=== PATIENT | female | born 1980 | race African-American/Black ===

== ENCOUNTER 2017-03-05 09:18 | Emergency (ER) | payer BC, OTHER | END 2017-03-05 10:00 | disposition home or self-care (01) | LOC: SCSER 09:18 | DX: K21.9 Gastro-esophageal reflux disease without esophagitis (principal) | CPT/HCPCS: 99283 ==

== ENCOUNTER 2017-10-12 10:36 | Day surgery (SDC) | payer OTHER ==
[2017-10-12] MEDS ORDERED: Acetaminophen 325 MG TAB PO SCH (11:00)
[2017-10-12 18:53] VITALS: BP 107/60; TEMP 99
== END 2017-10-12 18:57 | disposition home or self-care (01) ==
LOC: ONC/OP 10:36 → ONC 10:39 → ONC/OP 18:57
PROVIDERS: ATTEND Internal Medicine
DX: D50.9 Iron deficiency anemia, unspecified (principal)
CPT/HCPCS: 36415; 36430; 86850; 86900; 86901; P9016

== ENCOUNTER 2017-10-13 07:17 | Outpatient (CLI) | payer OTHER | END 2017-10-13 07:18 | disposition home or self-care (01) | LOC: BICULT 07:17 | PROVIDERS: ATTEND Internal Medicine | DX: K21.9 Gastro-esophageal reflux disease without esophagitis (principal); R10.13 Epigastric pain; R10.33 Periumbilical pain; R11.2 Nausea with vomiting, unspecified; R19.7 Diarrhea, unspecified; K80.20 Calculus of gallbladder without cholecystitis without obstruction | CPT/HCPCS: 76700 ==

== ENCOUNTER 2017-12-02 14:56 | Outpatient (CLI) | payer OTHER ==
[2017-12-02 16:08] LABS: ALT (SGPT) 11 U/L (8-55); AST (SGOT) 12 U/L (5-34); Albumin 4.2 g/dL (3.5-5.0); Alkaline Phosphatase 82 U/L (40-150); Anion Gap 12 mmol/L (10-20); BUN (Urea Nitrogen) 10 mg/dL (7.0-18.7); Bilirubin, Direct 0.1 mg/dL (0.1-0.3); Bilirubin, Total 0.2 mg/dL (0.2-1.2); Calc. Creatinine Clearance 0 mL/min (70-130); Calcium 8.8 mg/dL (7.8-10.44); Carbon Dioxide 22 mmol/L (22-29); Chloride 107 mmol/L (98-107); Estimated GFR-MDRD Greater than 90; Glucose 142 mg/dL (70-105); Sodium 137 mmol/L (136-145)
[2017-12-02 16:32] LABS: #Basophils 0.1 thou/uL (0.0-0.2); #Eosinphils 0.2 thou/uL (0.0-0.7); #Lymphocytes 2.7 thou/uL (1.20-3.40); #Monocytes 0.4 thou/uL (0.11-0.59); #Neutrophils 3.6 thou/uL (1.40-6.50); %Basophils 0.8 % (0.0-1.0); %Eosinophils 2.7 % (0.0-10.0); %Lymphocytes 39.1 % (21.0-51.0); %Monocytes 5.6 % (0.0-10.0); %Neutrophils 51.9 % (42.0-75.0); Anisocytosis SLIGHT = 6-15 cells (100X) (0-5/hpf); Hemoglobin 7.8 g/dL (12.0-16.0); Hypochromia SLIGHT = 6-15 cells (100X) (0-5/hpf); MDiff Complete? YES; Mean Corpuscular Hemoglobin 19.6 pg (27.0-31.0); Mean Corpuscular Volume 63.1 fL (78.0-98.0); Mean Platelet Volume 10.9 fL (7.4-10.4); Microcytosis SLIGHT = 6-15 cells (100X) (0-5/hpf); Ovalocytes SLIGHT = 2-5 cells (100X) (0-1/hpf); PLT Morphology Comment Appears Increased; Platelet Count 409 thou/uL (130-400); Red Blood Cell (RBC) Count 3.96 mill/uL (4.20-5.40); White Blood Cell (WBC) Count 6.9 thou/uL (4.8-10.8)
== END 2017-12-02 14:57 | disposition home or self-care (01) ==
LOC: LABBT 14:56
PROVIDERS: ATTEND Surgery
DX: Z01.812 Encounter for preprocedural laboratory examination (principal); K80.20 Calculus of gallbladder without cholecystitis without obstruction
CPT/HCPCS: 80048; 80076; 85025; 85060

== ENCOUNTER → 2017-12-05 | Day surgery (SDC) | payer OTHER ==
[2017-12-02 15:14] VITALS: BMI 28.8
[~2017-12-05] MED LIST: Bupivacaine HCl 0.5%/Epinephrine 1:200,000/PF 30 ml Vial ONE; Bupivacaine/Epinephrine 0.25% 30 ML VIAL ONE; CEFAZOLIN/Water 2 GM/20 ML SYRINGE ONE; Dexamethasone 20 MG/5 ML VIAL ONE; Famotidine/PF 20 mg/2ml Vial ONE; Fentanyl 100 MCG/2 ML VIAL ONE; Glycopyrrolate 0.2 MG/ML 5 ML SYRINGE ONE; HYDROcodone/Acetaminophen 5/325 mg Tablet ONE; Ketorolac Tromethamine 30 MG/ML VIAL ONE; Lidocaine 1% PF 5 ML VIAL ONE; Lidocaine 2% 10 ML INJ ONE; Morphine 4 MG/ML VIAL ONE; Ondansetron HCl/PF 4 MG/2 ML Vial ONE; PROPOFOL 200 MG/20 ML VIAL ONE
--- NOTE | 2017-12-05 21:37 | OP ---
DATE OF PROCEDURE: 12/05/2017 PREOPERATIVE DIAGNOSIS: Acute cholecystitis. POSTOPERATIVE DIAGNOSIS: Acute cholecystitis. PROCEDURE: Laparoscopic cholecystectomy. SURGEON: Dr. Frank. ANESTHESIA: General. ESTIMATED BLOOD LOSS: Minimal. COMPLICATIONS: None. SPECIMEN: Gallbladder. FINDINGS: Chronic cholecystitis. PROCEDURE IN DETAIL: The patient was taken to the Operating Room and laid supine on the Operating Nancy m table. After general anesthetic was obtained, the abdomen was prepped and draped in a sterile fashi on. A curved incision was made below the umbilicus. Cautery was used to dissect down to the umbilical fascia. Umbilical fascia was incised and held up using a Josse. The abdominal cavity was entered us ing a Debbie clamp. Holding stitch of Vicryl was placed on each side of the fascia. Ovalles trocar was placed. High-flow pneumoperitoneum was obtained. An upper midline 5-mm port and two right upper quadr ant 5-mm ports were placed under direct camera visualization. The gallbladder was retracted from the gallbladder fossa. The peritoneum of the gallbladder was opened anteriorly and posteriorly. The criti latonya view triangle was seen showing only the cystic duct and cystic artery branching from medial to la teral. There were no other branching structures. Two clips were placed proximally on the cystic duct and one laterally. It was cut using laparoscopic scissors. The cystic artery was taken in the same wa y. Electrocautery was then used to dissect the gallbladder out of the gallbladder fossa. The gallblad allie was placed in an Endo catch bag and brought out through the Ovalles. There was no bleeding or bile in the liver bed. The cystic duct stump and cystic artery stump were intact without evidence of extr avasation or bleeding. All port sites were infiltrated using local anesthesia. All ports were removed under camera visualization. Pneumoperitoneum was let down. The Vicryl was used to close the fascial defect below the umbilicus. All incisions were irrigated and closed using 4-0 Monocryl and DermaBond. The patient was en route to Recovery in stable condition. All instrument counts, needle counts and l ap counts were correct.
== END ==
LOC: SDC 11:16
PROVIDERS: ATTEND Surgery
PROC: 0FT44ZZ Resection of Gallbladder, Percutaneous Endoscopic Approach (ICD-10-PCS; principal; 2017-12-05)
DX: K80.12 Calculus of gallbladder with acute and chronic cholecystitis without obstruction (principal); Z79.899 Other long term (current) drug therapy
CPT/HCPCS: 88304; 96374; J0131; J0670; J2270; J3010; S0028

== ENCOUNTER 2018-02-23 08:37 | Day surgery (SDC) | payer OTHER ==
[2018-02-22 13:35] VITALS: BMI 34.7
[2018-02-23] MEDS ORDERED: Fentanyl 100 MCG/2 ML VIAL ONE ×2 (11:30→12:47)
[2018-02-23] MEDS ORDERED: Famotidine/PF 20 mg/2ml Vial ONE (11:31)
[2018-02-23] MEDS ORDERED: Ferric Subsulfate 8 ML BOT ONE (12:09)
[2018-02-23] MEDS ORDERED: Naloxone HCl 0.4 mg/ml Vial ONE (12:30)
--- NOTE | 2018-02-23 12:41 | OP ---
PREOPERATIVE DIAGNOSES: 1. Chronic tonsillitis. 2. Obstructive tonsillar hypertrophy. POSTOPERATIVE DIAGNOSES: 1. Chronic tonsillitis. 2. Obstructive tonsillar hypertrophy. PROCEDURE PERFORMED: Tonsillectomy over 12 years of age. PROCEDURE IN DETAIL: After consent was obtained, the patient was identified, brought to the operatin g room, and placed on the operating table in the supine position. General endotracheal anesthesia an d intravenous access was obtained and we proceeded with positioning the patient for oropharyngeal leona linda. Oropharyngeal exposure was obtained with a Shyanne-Tejas mouth gag after a head drape was placed and secured with a towel clip. The Shyanne-Tejas mouth gag was then suspended from the Mitchell tray and palatal elevation was achieved with a red rubber catheter. The right tonsil was addressed first. We used a curved Allis to grasp the tonsil and retract it medially as an anterior pillar incision was m artem with a #12 blade. The retrotonsillar fascial plane was then established and blunt dissection was performed with the suction cautery. Blood vessels were anticipated, identified, and cauterized as t hey were encountered. Ultimately, dissection was carried to the posterior tonsillar pillar mucosa wh ich was incised hemostatically, as well as the base of tongue connection. The tonsil was then passed off as a specimen and bleeding points within the tonsillar bed were cauter ized under direct visualization. We subsequently turned our attention to the contralateral side, whe re using a similar technique, a near identical procedure was performed. Again, the tonsil was graspe d and retracted medially with a curved Allis as an anterior pillar incision was made with a #12 blade . The retrotonsillar fascial plane was established and while the anterior pillar was retracted media lly, the hemostatic blunt dissection of the tonsil with a suction cautery was performed with blood ve ssels anticipated, identified, and cauterized as they were encountered. Again, dissection continued to the base of tongue and posterior tonsillar pillar mucosa which was incised in a hemostatic fashion . The tonsillar beds were then carefully inspected and bleeding points were identified and cauterize d with a suction cautery. After this portion of the procedure, hemostasis was completely obtained. The patient's oral cavity was copiously irrigated with iced saline and subsequently suctioned. We th en used the red rubber catheter to suction the gastric contents and the patient was subsequently arou sed, awakened, and extubated without difficulty and transported to the recovery room in stable condit ion. There were no complications.
== END 2018-02-23 15:13 | disposition home or self-care (01) ==
LOC: SDC 08:37
PROVIDERS: ATTEND Specialist
PROC: 0C5PXZZ Destruction of Tonsils, External Approach (ICD-10-PCS; principal; 2018-02-23)
DX: J35.01 Chronic tonsillitis (principal); L29.9 Pruritus, unspecified
CPT/HCPCS: 36415; 85014; 88304; 96374; J0131; J2175; J2310; J3010; S0028

== ENCOUNTER 2018-07-03 10:39 | Emergency (ER) | payer OTHER ==
[2018-07-03 11:44] LABS: ALT (SGPT) 19 U/L (8-55); AST (SGOT) 20 U/L (5-34); Albumin 4.2 g/dL (3.5-5.0); Alkaline Phosphatase 106 U/L (40-150); Anion Gap 14 mmol/L (10-20); BUN (Urea Nitrogen) 9 mg/dL (7.0-18.7); Bilirubin, Total 0.4 mg/dL (0.2-1.2); CK (CPK) 171 U/L (29-168); Calc. Creatinine Clearance 0 mL/min (70-130); Calcium 9.2 mg/dL (7.8-10.44); Carbon Dioxide 23 mmol/L (22-29); Chloride 107 mmol/L (98-107); Estimated GFR-MDRD Greater than 90; Globulin 3.2 g/dL (2.4-3.5); Glucose 138 mg/dL (70-105); Potassium 3.6 mmol/L (3.5-5.1); Protein, Total 7.4 g/dL (6.0-8.3); Sodium 140 mmol/L (136-145)
[2018-07-03 11:46] LABS: #Basophils 0.1 thou/uL (0.0-0.2); #Eosinphils 0.1 thou/uL (0.0-0.7); #Lymphocytes 2.2 thou/uL (1.20-3.40); #Monocytes 0.3 thou/uL (0.11-0.59); #Neutrophils 2.6 thou/uL (1.40-6.50); %Basophils 1.6 % (0.0-1.0); %Lymphocytes 41.1 % (21.0-51.0); %Monocytes 5.9 % (0.0-10.0); %Neutrophils 49.4 % (42.0-75.0); Hemoglobin 8.3 g/dL (12.0-16.0); Mean Corpuscular HGB CONC 29.1 g/dL (32.0-36.0); Mean Corpuscular Hemoglobin 18.7 pg (27.0-31.0); Mean Corpuscular Volume 64.2 fL (78.0-98.0); Mean Platelet Volume 7.3 fL (7.4-10.4); Platelet Count 376 thou/uL (130-400); RBC Distribution Width 16.9 % (11.5-14.5); Red Blood Cell (RBC) Count 4.45 mill/uL (4.20-5.40); White Blood Cell (WBC) Count 5.2 thou/uL (4.8-10.8)
[2018-07-03 11:53] LABS: MDiff Complete? YES
--- NOTE | 2018-07-03 11:54 | RAD ---
PA AND LATERAL VIEWS OF CHEST: Date: 07/03/18 HISTORY: Cough. FINDINGS: The cardiomediastinum is normal. The lungs are expanded and clear. The bony thorax is normal. IMPRESSION: Normal exam. POS: [facility]
== END 2018-07-03 12:49 | disposition home or self-care (01) ==
LOC: EEVIPCON 10:39 → SCSER 10:39
DX: J32.9 Chronic sinusitis, unspecified (principal); D64.9 Anemia, unspecified; R07.89 Other chest pain
CPT/HCPCS: 71046; 80053; 82550; 84484; 85025; 87804; 93005; 94760

== ENCOUNTER 2018-08-02 14:22 | Outpatient (CLI) | payer OTHER | END 2018-08-02 14:23 | disposition home or self-care (01) | LOC: CTENTCT 14:22 | PROVIDERS: ATTEND Specialist | DX: J32.9 Chronic sinusitis, unspecified (principal) | CPT/HCPCS: 70486 ==

== ENCOUNTER 2018-09-09 06:18 | Emergency (ER) | payer OTHER ==
[2018-09-09] MEDS ORDERED: Ondansetron PF 4 MG/2 ML Vial ONE (06:44)
[2018-09-09] MEDS ORDERED: Lidocaine Viscous Sol 2% 15 ml UD Cup ONE (06:45)
[2018-09-09] MEDS ORDERED: Mag-Al 1200 mg/1200 mg/30 ML UDCUP ONE (06:45)
== END 2018-09-09 07:27 | disposition home or self-care (01) ==
LOC: ERS 06:18
DX: R10.13 Epigastric pain (principal)
CPT/HCPCS: 93005; 96374; J2405

== ENCOUNTER 2018-09-22 15:04 | Outpatient (CLI) | payer OTHER ==
--- NOTE | 2018-09-22 18:12 | CT ---
CT OF THE ABDOMEN AND PELVIS WITH IV CONTRAST: 09/22/18 INDICATION: History of generalized abdominal pain. COMPARISON: None. FINDINGS: The lung bases are clear. The liver, pancreas, adrenal glands and kidneys appear within normal limits. The gallbladder is surgi liane absent. No focal renal lesion is evident. No free fluid or enlarged lymph nodes are evident. There is a normal appendix in the right lower quadrant. There is a mild amount of retained stool with in the colon. There is a fat containing umbilical hernia. Small bowel is normal appearing. There is a 2.8 cm hypodensity in the left adnexa suspicious for follicular cyst. Right adnexa, uterus, rectum, and perirectal soft tissues are unremarkable appearing. No acute osseous abnormality is evident. IMPRESSION: 1. Hypodensity of the left adnexa suspicious for a left adnexal follicular cyst in a premenopaus al female. Small follicles are suspected involving the right adnexa which are within normal limits. 2. Small amount of retained stool within the colon. 3. Cholecystectomy. 4. Normal appendix. POS: [facility]
== END 2018-09-22 15:05 | disposition home or self-care (01) ==
LOC: SCSCT 15:04
PROVIDERS: ATTEND Internal Medicine
DX: R10.84 Generalized abdominal pain (principal); Z90.49 Acquired absence of other specified parts of digestive tract
CPT/HCPCS: 74177

== ENCOUNTER 2019-01-18 13:01 | Outpatient (CLI) | payer OTHER ==
--- NOTE | 2019-01-18 14:16 | CT ---
CT OF NECK SOFT TISSUE WITH CONTRAST: INDICATION: Pain and edema. Injury. FINDINGS: The carotid and submandibular glands are unremarkable. No discrete thyroid lesion. Hyoid bone is in tact. Epiglottis and preepiglottic space are grossly unremarkable. Piriform sinuses are patent. No mass at the level of the glottis. Tracheal air column is patent. No obvious parapharyngeal inflamm ation or mass effect. There are scattered borderline-sized bilateral cervical chain lymph nodes, non specific. There is no significant hematoma of the subcutaneous tissues of the neck. There is a slig ht degree of subcutaneous edema of the imaged upper chest, likely of doubtful clinical significance. No obvious perivascular trauma within limitations of technique. No soft tissue gas or air density. No contusion or obvious consolidation of the imaged upper lung zones. Incidental note of paranasal sinus mucosal thickening notably anteriorly within the right maxillary sinus. IMPRESSION: 1. No obvious posttraumatic sequelae of the neck soft tissues. 2. Nonspecific mild prominence of bilateral cervical chin lymph nodes. POS: [facility]
== END 2019-01-18 13:02 | disposition home or self-care (01) ==
LOC: SCSCT 13:01
PROVIDERS: ATTEND Specialist
DX: R13.10 Dysphagia, unspecified (principal); J30.9 Allergic rhinitis, unspecified
CPT/HCPCS: 70491

== ENCOUNTER 2019-02-03 21:57 | Emergency (ER) | payer OTHER ==
[2019-02-03] MEDS ORDERED: Ondansetron PF 4 MG/2 ML Vial ONE (22:09)
[2019-02-03 22:29] LABS: Bilirubin Negative (Negative); Blood, Urine Negative (Negative); Clarity Clear (Clear); Glucose, Urine (Dipstick) 500 mg/dL (Negative); Leukocyte Negative (Negative); Nitrite Negative (Negative); Protein, Urine (Dipstick) Negative (Neg-Trace); Urobilinogen 0.2 mg/dL (Less than 2)
[2019-02-03 22:38] LABS: Hemoglobin 7.5 g/dL (12.0-16.0); Mean Corpuscular HGB CONC 29.8 g/dL (32.0-36.0); Mean Corpuscular Hemoglobin 18.7 pg (27.0-31.0); Mean Corpuscular Volume 62.7 fL (78.0-98.0); Platelet Count 472 thou/uL (130-400); RBC Distribution Width 18.3 % (11.5-14.5); Red Blood Cell (RBC) Count 4.03 mill/uL (4.20-5.40)
[2019-02-03 22:40] LABS: BHCG - Serum Negative (NEGATIVE); Pregs Control Background? CLEAR/WHITE (CLR/WHITE); Pregs Control Bar Appear? YES (CONTROL BAR)
[2019-02-03 22:46] LABS: ALT (SGPT) 14 U/L (8-55); AST (SGOT) 11 U/L (5-34); Albumin 4.1 g/dL (3.5-5.0); Alkaline Phosphatase 106 U/L (40-150); Anion Gap 17 mmol/L (10-20); BUN (Urea Nitrogen) 7 mg/dL (7.0-18.7); Bilirubin, Total 0.2 mg/dL (0.2-1.2); CK (CPK) 111 U/L (29-168); Calc. Creatinine Clearance 0 mL/min (70-130); Calcium 9.1 mg/dL (7.8-10.44); Carbon Dioxide 21 mmol/L (22-29); Chloride 102 mmol/L (98-107); Estimated GFR-MDRD Greater than 90; Globulin 3.4 g/dL (2.4-3.5); Glucose 287 mg/dL (70-105); Lipase 46 U/L (8-78); Potassium 3.7 mmol/L (3.5-5.1); Protein, Total 7.5 g/dL (6.0-8.3); Sodium 136 mmol/L (136-145)
[2019-02-03 22:57] LABS: #Basophils 0.1 thou/uL (0.0-0.2); #Eosinphils 0.3 thou/uL (0.0-0.7); #Monocytes 0.4 thou/uL (0.11-0.59); #Neutrophils 3.2 thou/uL (1.40-6.50); %Basophils 0.8 % (0.0-1.0); %Eosinophils 4.9 % (0.0-10.0); %Lymphocytes 43.1 % (21.0-51.0); %Monocytes 5.9 % (0.0-10.0); %Neutrophils 45.3 % (42.0-75.0); Anisocytosis SLIGHT = 6-15 cells (100X) (0-5/hpf); Elliptocytes SLIGHT = 2-5 cells (100X) (0-1/hpf); Hypochromia MODERATE=16-30 cells (100X) (0-5/hpf); MDiff Complete? YES; Microcytosis MODERATE=15-30 cells (100X) (0-5/hpf); Ovalocytes SLIGHT = 2-5 cells (100X) (0-1/hpf); Platelet Morphology Comment Appears Increased; Polychromasia SLIGHT = 2-3 cells (100X) (0-2/hpf); Stomatocytes SLIGHT = 2-5 cells (100X) (0-1/hpf)
== END 2019-02-03 23:48 | disposition home or self-care (01) ==
LOC: EEVIPCON 21:57 → SCSER 21:57
DX: R11.2 Nausea with vomiting, unspecified (principal); R19.7 Diarrhea, unspecified; E11.9 Type 2 diabetes mellitus without complications; D50.9 Iron deficiency anemia, unspecified
CPT/HCPCS: 80053; 81003; 82550; 83690; 84484; 84703; 85025; 93005; 96361; 96374; J2405

== ENCOUNTER 2019-02-08 19:41 | Emergency (ER) | payer OTHER ==
--- NOTE | 2019-02-08 20:10 | RAD ---
EXAM: Chest PA and lateral: HISTORY: Cough. Shortness of breath. Fever. COMPARISON: 07/03/2018 FINDINGS: Heart: Normal cardiac silhouette Aorta: Unremarkable Pulmonary vessels: Normal Costophrenic angles: Costophrenic angles are clear. Lungs: No consolidation or masses. Pneumothorax: No pneumothorax Osseous structures: No osseous abnormalities IMPRESSION: No acute cardiopulmonary process.
== END 2019-02-08 20:37 | disposition home or self-care (01) ==
LOC: SCSER 19:41
DX: J06.9 Acute upper respiratory infection, unspecified (principal); E11.9 Type 2 diabetes mellitus without complications; D50.0 Iron deficiency anemia secondary to blood loss (chronic); Z79.84 Long term (current) use of oral hypoglycemic drugs
CPT/HCPCS: 71046; 87804

== ENCOUNTER 2019-03-19 07:04 | Day surgery (SDC) | payer OTHER ==
[2019-03-16 12:49] VITALS: BMI 32.6
--- NOTE | 2019-03-19 11:29 | OP ---
DATE OF PROCEDURE: 03/19/2019 UNHAIRER SURGEON: None. PROCEDURE PERFORMED: Esophagogastroduodenoscopy with esophageal dilation over guidewire. INDICATIONS: 1. Dysphagia. 2. GERD. 3. Epigastric pain. 4. Iron deficiency anemia, with extensive endoscopic workup in 2018, including EGD, colonoscopy, and capsule endoscopy, all negative. MEDICATIONS: See Anesthesia record. FINDINGS: After discussion of the risks, benefits, and alternatives of the procedure, informed consent was obtained and witnessed. Pre-endoscopic cardiopulmonary examination was satisfactory. Time-out was performed before sedation was achieved. Sedation was achieved with Anesthesia assistance in the endoscopy unit. A Pentax adult upper endoscope was placed into the oropharynx and passed through the cricopharyngeus under direct visualization. The esophageal mucosa appeared normal throughout with a normal-appearing Z-line at 39 cm from the incisors. The endoscope was then advanced into the stomach. Forward and retroflexed views of the entire gastric mucosa were obtained. The gastric mucosa appeared normal throughout. The endoscope was advanced through the pylorus and into the first and second portions of the duodenum, which also appeared normal. At this point, a Savary spring tipped guidewire was passed down the accessory port of the scope. The tip of the guidewire was left in place in the gastric antrum and the endoscope was removed leaving the guidewire in place. I performed a single dilation with an 18-mm Savary dilator over the guidewire. The dilator passed easily. The dilator and guidewire were completely removed. The endoscope was passed back down the esophagus for re-examination. There was some minor mucosal trauma in the upper esophagus, but otherwise it remained unchanged. The upper endoscope was completely withdrawn and the patient allowed to recover. The patient tolerated the procedure well. There were no immediate postprocedure complications. IMPRESSION: 1. Normal esophagogastroduodenoscopy .. 2. No endoscopic abnormality to explain the patient's dysphagia. The esophagus was empirically dilated to 18 mm with Savary dilator over guidewire. RECOMMENDATIONS: 1. Trial of dicyclomine 10 mg t.i.d. as needed for abdominal pain. 2. Continue PPI. 3. Follow up in the GI Clinic with physician medical research assistant in 1 month. Job ID: [id number]
[2019-03-19] MEDS ORDERED: PROPOFOL 200 MG/20 ML VIAL ONE (14:53)
== END 2019-03-19 11:22 | disposition home or self-care (01) ==
LOC: SDC 07:04 → EEVIPCON 07:04 → SDC 11:22
PROVIDERS: ATTEND Internal Medicine
PROC: 0D758ZZ Dilation of Esophagus, Via Natural or Artificial Opening Endoscopic (ICD-10-PCS; principal; 2019-03-19)
DX: K21.9 Gastro-esophageal reflux disease without esophagitis (principal); D50.9 Iron deficiency anemia, unspecified; Z79.84 Long term (current) use of oral hypoglycemic drugs; Z79.899 Other long term (current) drug therapy
CPT/HCPCS: J2704

== ENCOUNTER 2019-04-27 07:55 | Outpatient (CLI) | payer OTHER ==
--- NOTE | 2019-04-27 09:15 | RAD ---
XR Barium Swallow Esophagus HISTORY: Dysphagia COMPARISON: None. FINDINGS: Swallowing was grossly normal. There is unobstructed flow of contrast through the esophagus into the stomach. No ulcer, stricture, mass or diverticulum is seen. No GE reflux is demonstrated. IMPRESSION: Normal exam
== END 2019-04-27 07:56 | disposition home or self-care (01) ==
LOC: RAD 07:55
PROVIDERS: ATTEND Specialist
DX: R13.10 Dysphagia, unspecified (principal)
CPT/HCPCS: 74220

== ENCOUNTER 2019-06-20 16:15 | Outpatient (CLI) | payer OTHER | END 2019-06-20 16:16 | disposition home or self-care (01) | LOC: CTENTCT 16:15 | PROVIDERS: ATTEND Specialist | DX: J32.9 Chronic sinusitis, unspecified (principal) | CPT/HCPCS: 70486 ==

== ENCOUNTER 2019-06-28 09:38 | Day surgery (SDC) | payer OTHER ==
[2019-06-27 11:46] VITALS: BMI 28.8
[2019-06-28] MEDS ORDERED: AFRIN NASAL MIST 15 ML BOT ONE ×2 (10:02→11:05)
[2019-06-28] MEDS ORDERED: Fentanyl 100 MCG/2 ML VIAL ONE ×3 (11:03→13:36)
[2019-06-28] MEDS ORDERED: Lidocaine 1% w/Epinephrine 1:100K 20 ML VIAL ONE (11:05)
[2019-06-28] MEDS ORDERED: EPINEPHrine 1 MG/ML AMP ONE (11:05)
[2019-06-28] MEDS ORDERED: methylPREDNISolone Acetate 40 mg/ml Vial ONE (11:41)
[2019-06-28] MEDS ORDERED: PROPOFOL 200 MG/20 ML VIAL ONE (13:45)
[2019-06-28] MEDS ORDERED: Ondansetron PF 4 MG/2 ML Vial ONE (13:45)
[2019-06-28] MEDS ORDERED: Succinylcholine Chloride 20 MG/ML 10 ml SYRINGE FS ONE (13:45)
[2019-06-28] MEDS ORDERED: Rocuronium Bromide 10 MG/ML (10ML VIAL) ONE (13:45)
[2019-06-28] MEDS ORDERED: Dexamethasone 20 MG/5 ML VIAL ONE (13:45)
[2019-06-28] MEDS ORDERED: Lidocaine 1% PF 5 ML VIAL ONE (13:45)
[2019-06-28] MEDS ORDERED: Morphine 2 MG/ML SYRINGE ONE (14:00)
[2019-06-28] MEDS ORDERED: HYDROcodone/Acetaminophen 5/325 mg Tablet ONE (14:31)
--- NOTE | 2019-06-28 15:09 | OP ---
DATE OF PROCEDURE: 06/28/2019 PREOPERATIVE DIAGNOSES: 1. Chronic sinusitis. 2. Hypertrophic inferior turbinates. 3. Recurrent sinusitis. POSTOPERATIVE DIAGNOSES: 1. Chronic sinusitis. 2. Hypertrophic inferior turbinates. 3. Recurrent sinusitis. PROCEDURES PERFORMED: 1. Bilateral nasal endoscopy with maxillary antrostomy. 2. Bilateral nasal endoscopy with frontal sinusotomy. 3. Bilateral nasal endoscopy with total ethmoidectomy. 4. Bilateral nasal endoscopy with submucosal resection of inferior turbinates. FINDINGS: The patient had extremely hyperostotic thick bone with chronic changes and very inflamed mucosa despite appropriate premedical treatment. The inferior turbinates were quite large as well. DESCRIPTION OF PROCEDURE: BILATERAL NASAL ENDOSCOPY WITH MAXILLARY ANTROSTOMY: The uncinate was then identified and the extent of the uncinate was appreciated by out-fracturing the uncinate with the ball-tip probe. We then used the sickle blade to disarticulate the uncinate from the lateral nasal wall. This was then removed with straight biting and upbiting punches with the remaining shrouds of mucosa and bony septum removed with the micro-debrider. The natural os of the maxillary sinus was then identified and enlarged with the maxillary punches and back biting forceps. BILATERAL NASAL ENDOSCOPY WITH FRONTAL SINUSOTOMY: Following the ethmoidectomy, we then turned our attention to the frontal nasal recess. The agger nasi cells were addressed and the frontal recess was exposed. The natural opening to the frontal sinus was identified. At this point, any obstructing shrouds of mucosa and bony fragments were removed with a curved microdebrider. The wound was then examined and found to be free of any obstructing debris. We then turned our attention to the contralateral side and performed a similar procedure again under endoscopic visualization using a 45-degree scope. We were able to visualize the frontal recess. Obstructing shrouds of mucosa and bone were removed with a microdebrider. The natural os of frontal sinus was identified and enlarged and irrigated. At this point, the frontal sinusotomy was completed and we turned to the next area of concern. BILATERAL NASAL ENDOSCOPY WITH TOTAL ETHMOIDECTOMY: The anterior face of the ethmoid bulla was entered and with the micro-debrider, dissection continued posteriorly to the ground lamella. The limits of dissection included the insertion of the middle turbinate, medial orbital wall, and base of skull. We similarly identified the frontal recess and removed shrouds of bone and debris in that region to obtain patency into the agger nasi region and frontal recess. We then entered the ground lamella and its anteroinferior aspect and proceeded posteriorly, opening the posterior ethmoid air-cell system. Again, the limits of dissection included the base of skull and medial orbital wall. BILATERAL NASAL ENDOSCOPY WITH SUBMUCOSAL RESECTION OF INFERIOR TURBINATES: After consent was obtained, the patient was identified, brought to the operating room, and placed on the operating room table in the supine position. Consent was obtained, notifying the patient of the possibility of additional infections, bleeding, brain injury, and eye/orbital injury. The patient was placed on the operating room table, and general endotracheal anesthesia and intravenous access was obtained. The patient was then positioned, prepped and draped for endoscopic sinus surgery. Nasal preparation included trimming nasal vestibular hairs and spraying in topical Afrin. We then placed Afrin topical solution on nasal pledgets and strategically located them intranasally. The perinasal mucosa was injected with 1% lidocaine with 1:100,000 epinephrine in the submucoperichondrial plane of the septum, lateral nasal wall, and anterior to the uncinate. The patient was then prepped and draped in a sterile fashion and positioned for endoscopic sinus surgery. With the 0-degree endoscope, the patient underwent systematic nasal endoscopy. There were no suspicious internasal masses or lesions identified. We then focused our attention to the osteomeatal complex region under the middle turbinate. The inferior turbinates were visualized with a 0 degree endoscope and outfractured with a Sherlyn elevator. The inferior medial aspect was cauterized with the electrocautery. Hemostasis was obtained . After adequate airway was established, we turned our attention to the contralateral side and used a similar procedure. Again, a Hamer elevator was used to outfracture inferior turbinates under endoscopic visualization. With a suction cautery, the free inferior medial aspect was cauterized under direct visualization along the length of the inferior turbinate. At this point, we then turned our attention to the contralateral side and proceeded with endoscopic sinus surgery. At the completion of the case, Rice keel splints were placed in the ethmoid cavities after the ethmoidectomy. There were no complications. The patient tolerated the procedure well and was discharged to the recovery room in stable condition prior to return to the preoperative day stay with ultimate discharge home. Prescriptions for pain medication and antibiotics were provided. The patient received intramuscular Depo-Medrol during the case. Job ID: [id number]
== END 2019-06-28 16:00 | disposition home or self-care (01) ==
LOC: SDC 09:38
PROVIDERS: ATTEND Specialist
PROC: 09BU8ZZ Excision of Right Ethmoid Sinus, Via Natural or Artificial Opening Endoscopic (ICD-10-PCS; principal; 2019-06-28)
PROC: 09BT8ZZ Excision of Left Frontal Sinus, Via Natural or Artificial Opening Endoscopic (ICD-10-PCS; principal; 2019-06-28)
PROC: 09BV8ZZ Excision of Left Ethmoid Sinus, Via Natural or Artificial Opening Endoscopic (ICD-10-PCS; principal; 2019-06-28)
PROC: 09BL8ZZ Excision of Nasal Turbinate, Via Natural or Artificial Opening Endoscopic (ICD-10-PCS; principal; 2019-06-28)
PROC: 099R8ZZ Drainage of Left Maxillary Sinus, Via Natural or Artificial Opening Endoscopic (ICD-10-PCS; principal; 2019-06-28)
PROC: 099Q8ZZ Drainage of Right Maxillary Sinus, Via Natural or Artificial Opening Endoscopic (ICD-10-PCS; principal; 2019-06-28)
PROC: 09BS8ZZ Excision of Right Frontal Sinus, Via Natural or Artificial Opening Endoscopic (ICD-10-PCS; principal; 2019-06-28)
DX: J32.4 Chronic pansinusitis (principal); J34.3 Hypertrophy of nasal turbinates; K58.9 Irritable bowel syndrome, unspecified; Z79.899 Other long term (current) drug therapy
CPT/HCPCS: 36415; 85014; J0171; J1030; J1100; J2001; J2270; J2405; J2704; J3010

== ENCOUNTER 2019-11-15 05:39 | Outpatient (CLI) | payer OTHER ==
[2019-11-15 16:43] LABS: BHCG - Serum Negative (NEGATIVE); Pregs Control Background? CLEAR/WHITE (CLR/WHITE); Pregs Control Bar Appear? YES (CONTROL BAR)
== END 2019-11-15 05:40 | disposition home or self-care (01) ==
LOC: LABBT 05:39
PROVIDERS: ATTEND Obstetrics & Gynecology
DX: Z01.812 Encounter for preprocedural laboratory examination (principal); Z11.59 Encounter for screening for other viral diseases; N92.0 Excessive and frequent menstruation with regular cycle; D64.9 Anemia, unspecified; R10.2 Pelvic and perineal pain
CPT/HCPCS: 84703

== ENCOUNTER → 2019-11-19 | Day surgery (SDC) | payer OTHER ==
[2019-11-12 09:33] VITALS: BMI 28.8
[2019-11-15 16:14] LABS: Hemoglobin 8.7 g/dL (12.0-16.0); Mean Corpuscular HGB CONC 31.7 g/dL (32.0-36.0); Mean Corpuscular Hemoglobin 21.6 pg (27.0-31.0); Mean Corpuscular Volume 68.1 fL (78.0-98.0); Mean Platelet Volume 12.1 fL (7.4-10.4); Platelet Count 405 thou/uL (130-400); RBC Distribution Width 21.4 % (11.5-14.5); Red Blood Cell (RBC) Count 4.04 mill/uL (4.20-5.40); White Blood Cell (WBC) Count 3.6 thou/uL (4.8-10.8)
[2019-11-16 15:42] LABS: SARS-CoV-2 MS2 Positive; SARS-CoV-2 N Gene Positive; SARS-CoV-2 S Gene Positive; SARS-CoV-2 orf1ab Positive
== END ==
LOC: SDC 12:26
PROVIDERS: ATTEND Obstetrics & Gynecology
DX: U07.1 COVID-19 (principal); Z01.818 Encounter for other preprocedural examination; D64.9 Anemia, unspecified; R10.2 Pelvic and perineal pain; Z79.899 Other long term (current) drug therapy
CPT/HCPCS: 85027; 86850; 86900; 86901; 87635; U0003